=== PATIENT | female | born 1985 | race Hispanic/Latino ===

== ENCOUNTER 2019-06-22 09:57 | Outpatient (CLI) | payer OTHER ==
--- NOTE | 2019-06-22 13:23 | ULT ---
OB ULTRASOUND: HISTORY: anatomy. FINDINGS: A single live intrauterine gestation is seen with measurements corresponding to an estimated gestatio nal age of 21 weeks 1 day and HAYDEE at 11/01/2019. Estimated weight measures 377 grams or 13 ounce s (2% by Hadlock criteria). measurements are as follows: BPD 5.13 cm, 21 weeks 4 days HC 18.89 cm, 21 weeks 2 days AC 15.42 cm, 20 weeks 5 days FL 3.44 cm, 20 weeks 6 days heart rate measures 150 b.p.m. DINORA measures 16.7 cm. Placenta is anteriorly located without e vidence of placenta previa. Cervical length measures 7.1 cm. A 3-vessel cord, cord insertion, kidneys, bladder, stomach, 4-chamber heart, lateral ventricles , cerebellum, spine, upper and lower extremities are visualized. The lips and nose are not well seen . No significant anomalies are identified. IMPRESSION: Single live intrauterine of 21 weeks 1 day estimated gestational age and estimated date of delivery at 11/01/2019. POS: VENKAT
== END 2019-06-22 09:58 | disposition home or self-care (01) ==
LOC: BICULT 09:57
PROVIDERS: ATTEND Family Medicine
DX: O09.92 Supervision of high risk pregnancy, unspecified, second trimester (principal); Z3A.21 21 weeks gestation of pregnancy
CPT/HCPCS: 76805

== ENCOUNTER 2019-10-22 08:16 | Outpatient (CLI) | payer MEDICAID, OTHER ==
[2019-10-22 17:54] LABS: SARS-CoV-2 MS2 Positive; SARS-CoV-2 N Gene Negative; SARS-CoV-2 S Gene Negative; SARS-CoV-2 by NAA Not Detected (NotDetected); SARS-CoV-2 orf1ab Negative
== END 2019-10-22 08:17 | disposition home or self-care (01) ==
LOC: LABSCS 08:16
PROVIDERS: ATTEND Family Medicine
DX: Z20.828 Contact with and (suspected) exposure to other viral communicable diseases (principal)
CPT/HCPCS: 87635; U0003

== ENCOUNTER 2019-10-25 19:29 | Inpatient (IN) | payer MEDICAID, SELFPAY ==
[~2019-10-25 19:29] MED LIST: EPHEDRINE 25 MG/5 ML SYRINGE ONE; Terbutaline Sulfate 1 MG/ML VIAL ONE
[2019-10-25] MEDS ORDERED: Butorphanol Tartrate 1 MG/ML VIAL SLOW IVP PRN (19:55)
[2019-10-25] MEDS ORDERED: hydrALAZINE 20 MG/ML VIAL SLOW IVP PRN (19:55)
[2019-10-25] MEDS ORDERED: Lidocaine 1% (PF) 30 ML VIAL SC PRN (19:55)
[2019-10-25] MEDS ORDERED: Diphenoxylate HCl/Atropine Tablet PO PRN (19:55)
[2019-10-25] MEDS ORDERED: Ibuprofen 800 MG TAB PO PRN (19:55)
[2019-10-25] MEDS ORDERED: Promethazine HCl 25 MG/ML VIAL IM PRN (19:55)
[2019-10-25] MEDS ORDERED: HYDROcodone/Acetaminophen 5/325 mg Tablet PO PRN (19:55)
[2019-10-25] MEDS ORDERED: Ondansetron PF 4 MG/2 ML Vial IVP PRN (19:55)
[2019-10-25] MEDS ORDERED: Misoprostol 200 MCG TAB PR PRN (19:55)
[2019-10-25] MEDS ORDERED: Methylergonovine 0.2 MG/ML VIAL IM PRN (19:55)
[2019-10-25] MEDS ORDERED: Carboprost 250 MCG/ML AMP IM PRN (19:55)
[2019-10-25] MEDS: Lactated Ringer's 1,000 ML IV SCH (20:00)
[2019-10-25 20:32] VITALS: BMI 38.9
[2019-10-25 20:34] LABS: Hemoglobin 13.1 g/dL (12.0-16.0); Mean Corpuscular HGB CONC 34.1 g/dL (32.0-36.0); Mean Corpuscular Hemoglobin 28.5 pg (27.0-31.0); Mean Corpuscular Volume 83.5 fL (78.0-98.0); Platelet Count 236 thou/uL (130-400); RBC Distribution Width 13.2 % (11.5-14.5); Red Blood Cell (RBC) Count 4.61 mill/uL (4.20-5.40)
[2019-10-25] MEDS ORDERED: Penicillin G Potassium 5 MILL.UNITS in Sodium Chloride 0.9% 100 ML IVPB SCH (20:45)
[2019-10-25] MEDS ORDERED: NS w/ Oxytocin 10 units 500 ML IV SCH (21:00)
[2019-10-25] MEDS: NS w/ Oxytocin 10 units 500 ML IV SCH (21:05)
[2019-10-25 21:13] LABS: Syphilis Antibody Nonreactive (Nonreactive); Syphilis Antibody Index 0.04 S/CO (<1.00 Non-Reactive)
[2019-10-25 21:42] LABS: Glucose 69 mg/dL (70-105)
[2019-10-26 00:27] LABS: HBSAg Index 0.21 S/CO (0-0.99); Hep B Surf Ag Non-Reactive S/CO (NonReactive)
[2019-10-26] MEDS: Misoprostol 100 MCG TAB PO SCH ×3 (00:30→22:51)
[2019-10-26] MEDS: Penicillin G 2.5 MILL.units 2.5 MILL.UNITS in Premix Bag 1 BAG IVPB SCH ×5 (01:10→22:53)
[2019-10-26] MEDS: Lactated Ringer's 1,000 ML IV SCH ×3 (04:59→11:56)
[2019-10-26] MEDS: NS w/ Oxytocin 10 units 500 ML IV SCH (08:46)
[2019-10-26] MEDS ORDERED: Lactated Ringer's 500 ML IV PRN (09:44)
[2019-10-26] MEDS ORDERED: Naloxone HCl 0.4 mg/ml Vial IVP PRN ×2 (09:44)
[2019-10-26] MEDS ORDERED: Promethazine HCl 25 MG/ML VIAL IM PRN (09:44)
[2019-10-26] MEDS ORDERED: diphenhydrAMINE 50 MG/ML VIAL IVP PRN (09:44)
[2019-10-26] MEDS ORDERED: Acetaminophen 325 MG TAB PO PRN (09:44)
[2019-10-26] MEDS ORDERED: Ondansetron PF 4 MG/2 ML Vial IVP PRN ×2 (09:44→21:55)
[2019-10-26] MEDS ORDERED: EPHEDRINE 25 MG/5 ML SYRINGE SLOW IVP PRN (09:44)
[2019-10-26] MEDS ORDERED: Fentanyl 4 mcg/Bupivacaine 0.1% Cassette 100 ML EPIDURAL SCH (09:45)
[2019-10-26] MEDS ORDERED: Communication Order-Pharmacy FS SCH (09:45)
[2019-10-26] MEDS: NS / Oxytocin 40 units/1000ml 1,000 ML IV PRN ×2 (17:51→20:26)
[2019-10-26] MEDS ORDERED: Fentanyl 4 mcg/Bup 0.1% Cadd 0 ML ONE (18:08)
[2019-10-26] MEDS ORDERED: hydrALAZINE 20 MG/ML VIAL SLOW IVP PRN (21:55)
[2019-10-26] MEDS ORDERED: Milk Of Magnesia 30 ML UDCUP PO PRN (21:55)
[2019-10-26] MEDS ORDERED: diphenhydrAMINE 25 MG CAP PO PRN (21:55)
[2019-10-26] MEDS ORDERED: Benzocaine-Menthol 82.5 ML CAN TOP PRN (21:55)
[2019-10-26] MEDS ORDERED: NS / Oxytocin 40 units/1000ml 1,000 ML IV SCH (21:55)
[2019-10-26] MEDS ORDERED: Bisacodyl 10 MG SUPP PR PRN (21:55)
[2019-10-26] MEDS ORDERED: HYDROcodone/Acetaminophen 5/325 mg Tablet PO PRN ×2 (21:55)
[2019-10-26] MEDS ORDERED: Lanolin Ointment 7 GM TUBE TOP PRN (21:55)
[2019-10-26] MEDS ORDERED: Adacel (T-DAP) 0.5 ML SYRINGE IM ONE (21:55)
[2019-10-26] MEDS: Ibuprofen 800 MG TAB PO SCH (22:52)
[2019-10-26] MEDS: Docusate Calcium (SURFAK) 240 MG CAP PO SCH (22:52)
[2019-10-27] MEDS: Ibuprofen 800 MG TAB PO SCH ×2 (05:44→14:17)
[2019-10-27] MEDS ORDERED: Prenatal Vitamin 1 TAB PO SCH (09:00)
[2019-10-27] MEDS: Docusate Calcium (SURFAK) 240 MG CAP PO SCH (09:29)
[2019-10-27] MEDS: Ferrous Sulfate 325 MG TAB PO SCH ×2 (09:29→18:31)
[2019-10-27 16:47] VITALS: TEMP 98.3
[2019-10-27 16:57] VITALS: BP 134/68
== END 2019-10-27 19:55 | disposition home or self-care (01) | DRG 806 ==
LOC: L&D 19:29 → 3SW 10-26 21:39
PROVIDERS: ADMIT Family Medicine; ATTEND Family Medicine
PROC: 10E0XZZ Delivery of Products of Conception, External Approach (ICD-10-PCS; principal; 2019-10-26)
PROC: 0KQM0ZZ Repair Perineum Muscle, Open Approach (ICD-10-PCS; 2019-10-26)
PROC: 10907ZC Drainage of Amniotic Fluid, Therapeutic from Products of Conception, Via Natural or Artificial Opening (ICD-10-PCS; 2019-10-26)
PROC: 3E033VJ Introduction of Other Hormone into Peripheral Vein, Percutaneous Approach (ICD-10-PCS; 2019-10-26)
PROC: 0W8NXZZ Division of Female Perineum, External Approach (ICD-10-PCS; 2019-10-26)
DX: O24.420 Gestational diabetes mellitus in childbirth, diet controlled (principal); O98.82 Other maternal infectious and parasitic diseases complicating childbirth; Z3A.39 39 weeks gestation of pregnancy; Z37.0 Single live birth; B95.1 Streptococcus, group B, as the cause of diseases classified elsewhere; O70.1 Second degree perineal laceration during delivery
CPT/HCPCS: 36415; 36416; 51702; 82947; 85027; 86780; 86850; 86900; 86901; 87340; J2540; J2590; J3105; J3490